=== PATIENT | male | born 1980 | race Hispanic/Latino ===

== ENCOUNTER 2025-05-12 02:12 | Emergency (ER) | payer OTHER ==
[2025-05-12] MEDS ORDERED: Bacitracin 1 PK ONE (02:41)
[2025-05-12] MEDS ORDERED: Lidocaine Viscous Sol 2% 15 ml UD Cup ONE (02:42)
[2025-05-12] MEDS ORDERED: Lidocaine 1% (PF) 30 ML VIAL ONE (02:42)
[2025-05-12] MEDS ORDERED: Naproxen 500 MG TAB ONE (03:51)
== END 2025-05-12 04:00 ==
LOC: NAV ERS 02:12 → EEVIPCON 02:12 → NAV ERS 04:00
DX: S01.511A Laceration without foreign body of lip, initial encounter (principal); E11.9 Type 2 diabetes mellitus without complications; E78.00 Pure hypercholesterolemia, unspecified; I10 Essential (primary) hypertension; Z79.84 Long term (current) use of oral hypoglycemic drugs; Z79.899 Other long term (current) drug therapy; W06.XXXA Fall from bed, initial encounter; Y92.149 Unspecified place in prison as the place of occurrence of the external cause
CPT/HCPCS: 12011; 12051; 70450; 70486